=== PATIENT | female | born 1960 | race Caucasian/White ===

== ENCOUNTER → 2016-10-17 | Outpatient (CLI) | payer OTHER ==
--- NOTE | 2016-10-17 16:48 | US ---
EXAMINATION TYPE: US thyroid st tissue head/neck DATE OF EXAM: 10/17/2016 3:57 PM COMPARISON: Prior thyroid ultrasound October 02, 2014. CLINICAL HISTORY: E04.1 THYROID NODULES. follow up exam GLAND SIZE: Right Lobe: 3.9 x 1.2 x 1.5 cm Overall Parenchyma: heterogenous Left Lobe: 3.4 x 0.9 x 1.1 cm Overall Parenchyma: heterogeneous Isthmus Thickness: 0.4 cm NODULES RIGHT: # of nodules measured on right: 0 LEFT: # of nodules measured on left: 0 ISTHMUS: # of nodules measured in the isthmus: 0 Bilateral neck scanned, no evidence of lymphadenopathy. Heterogeneous lobes bilaterally Heterogeneous somewhat small thyroid gland is redemonstrated. No suspicious nodules are identified on today's study. IMPRESSION: Overall stable findings, heterogeneous small thyroid gland without discrete solid or cystic nodules i dentified.
--- NOTE | 2016-10-18 11:28 | MM ---
Reason for exam: screening (asymptomatic). Last mammogram was performed 3 years and 2 months ago. History: Patient is postmenopausal, has history of endometrial cancer at age 51, and had first child at age 34. Family history of breast cancer in sister at age 52 and breast cancer in maternal grandmother at age 80. Took hormonal contraceptives for 5 years 6 months. Physical Findings: A clinical breast exam by your physician is recommended on an annual basis and results should be correlated with mammographic findings. MG 3D Screening Mammo W/Cad Bilateral CC and MLO view(s) were taken. Prior study comparison: August 16, 2013, bilateral digital screening mammo w/CAD. January 25, 2012, [facility] DIGITAL RIGHT MAMMOGRAM w/CAD. The breast tissue is almost entirely fat. There is no discrete abnormality. No significant changes when compared with prior studies. ASSESSMENT: Negative, BI-RAD 1 RECOMMENDATION: Routine screening mammogram of both breasts in 1 year.
== END | disposition home or self-care (01) ==
LOC: RADMAMWWP 15:10
PROVIDERS: ATTEND Family Medicine
DX: Z12.31 Encounter for screening mammogram for malignant neoplasm of breast (principal); E04.1 Nontoxic single thyroid nodule
CPT/HCPCS: 77063; 76536; G0202

== ENCOUNTER → 2017-12-07 | Outpatient (CLI) | payer OTHER ==
--- NOTE | 2017-12-07 13:33 | US ---
EXAMINATION TYPE: US thyroid st tissue head/neck DATE OF EXAM: 12/07/2017 COMPARISON: 10/24/17 CLINICAL HISTORY: E04.1 nodules, R91.1 Lung Nodule. GLAND SIZE: Right Lobe: 3.8 x 1.0 x 1.2 cm Overall Parenchyma: heterogenous Left Lobe: 3.1 x 0.7 x 0.9 cm Overall Parenchyma: heterogeneous Isthmus Thickness: 0.3 cm NODULES RIGHT: # of nodules measured on right: 0 LEFT: # of nodules measured on left: 0 ISTHMUS: # of nodules measured in the isthmus: 0 Bilateral neck scanned, no evidence of lymphadenopathy. Diffusely heterogenous gland bilaterally with no definitive nodule(s) IMPRESSION: Diffuse heterogeneity of the thyroid gland with no discrete nodules. Finding could relate to thyroidi tis. Correlate with laboratory values.
--- NOTE | 2017-12-07 17:30 | CT ---
EXAMINATION TYPE: CT chest w con DATE OF EXAM: 12/07/2017 COMPARISON: 10/14/2015 HISTORY: Follow up Left sided nodule per patient CT DLP: 783.2 mGycm, Automated exposure control for dose reduction was used. CONTRAST: Performed injected with 100 mL of Isovue 300. TECHNIQUE: Axial images were obtained at 5 mm thick sections. Reconstructed images are reviewed on [employer] computer in the coronal plane. FINDINGS: Portion of the thyroid visualized is normal. There is a 0.5 cm nodule posterior lateral periphery right upper lobe. Series 4 image 30. This appear s to been present previously No enlarged mediastinal or hilar adenopathy is evident. The ascending aorta diameter at the level o f the main pulmonary artery is 2.6 cm. The main pulmonary artery diameter at the bifurcation is 2.[address] sections are obtained through the upper abdomen. There is a 2.1 cm cyst within the left lo be liver measuring 9 Hounsfield units. Some mild fatty infiltration of liver may be present. IMPRESSIONS: 1. Small stable subcentimeter nodule periphery right upper lobe. Follow-up exam in one year can confi rm stability.
--- NOTE | 2017-12-11 10:34 | MM ---
Reason for exam: screening (asymptomatic). Last mammogram was performed 1 year and 2 months ago. History: Patient is postmenopausal, has history of endometrial cancer at age 51, and had first child at age 34. Family history of breast cancer in sister at age 52 and breast cancer in maternal grandmother at age 80. Took hormonal contraceptives for 5 years 6 months. Physical Findings: A clinical breast exam by your physician is recommended on an annual basis and results should be correlated with mammographic findings. MG 3D Screening Mammo W/Cad Bilateral CC and MLO view(s) were taken. Prior study comparison: October 17, 2016, bilateral MG 3d screening mammo w/cad. August 16, 2013, bilateral digital screening mammo w/CAD. There are scattered fibroglandular densities. There are benign appearing stable bilateral round oval circumscribed masses likely intramammary lymph nodes. No suspicious abnormality. No significant changes when compared with prior studies. ASSESSMENT: Benign, BI-RAD 2 RECOMMENDATION: Routine screening mammogram of both breasts in 1 year.
== END | disposition home or self-care (01) ==
LOC: RADMAMWWP 10:25
PROVIDERS: ATTEND Family Medicine
DX: Z12.31 Encounter for screening mammogram for malignant neoplasm of breast (principal); R91.1 Solitary pulmonary nodule; E07.89 Other specified disorders of thyroid
CPT/HCPCS: 77067; 77063; 76536; 71260; Q9967

== ENCOUNTER → 2019-06-17 | Outpatient (CLI) | payer OTHER ==
--- NOTE | 2019-06-17 09:42 | US ---
EXAMINATION TYPE: US thyroid st tissue head/neck DATE OF EXAM: 06/17/2019 COMPARISON: US 12/07/2017 CLINICAL HISTORY: R22.0 SWELLING. F/U, pt on Synthroid GLAND SIZE: Right Lobe: 3.9 x 1.3 x 1.7 cm Overall Parenchyma: Diffusely heterogeneous Left Lobe: 3.1 x 0.9 x 1.1 cm Overall Parenchyma: Diffusely heterogeneous Isthmus Thickness: 0.4 cm Bilateral neck scanned, probable lymph node right lateral neck= 0.6 cm, probable lymph node left late ral neck= 0.4 cm. Diffusely heterogeneous thyroid bilaterally, similar finding when compared to previ ous. IMPRESSION: Diffusely heterogenous thyroid gland, which may be sequela of chronic thyroiditis. No discrete nodule . Bilateral nonenlarged adjacent lymph nodes are incidentally seen.
--- NOTE | 2019-06-17 11:28 | MM ---
Reason for exam: screening (asymptomatic). Last mammogram was performed 1 year and 6 months ago. History: Patient is postmenopausal, has history of endometrial cancer at age 51, and had first child at age 34. Family history of breast cancer in sister at age 52 and breast cancer in maternal grandmother at age 80. Took hormonal contraceptives for 5 years 6 months. Physical Findings: A clinical breast exam by your physician is recommended on an annual basis and results should be correlated with mammographic findings. MG 3D Screening Mammo W/Cad Bilateral CC and MLO view(s) were taken. Prior study comparison: December 07, 2017, bilateral MG 3d screening mammo w/cad. October 17, 2016, bilateral MG 3d screening mammo w/cad. There are scattered fibroglandular densities. No suspicious abnormality. Stable intramammary lymph nodes. No significant changes when compared with prior studies. ASSESSMENT: Negative, BI-RAD 1 RECOMMENDATION: Routine screening mammogram of both breasts in 1 year.
--- NOTE | 2019-06-17 12:00 | BD ---
EXAMINATION TYPE: Axial Bone Density DATE OF EXAM: 06/17/2019 COMPARISON: NONE CLINICAL HISTORY: Z 78.0 Height: 65.5 IN Weight: 266 LBS FRAX RISK QUESTIONS: Secondary Osteoporosis: Rheumatoid Arthritis: YES RISK FACTORS HISTORY OF: Hip Fracture (Right): YES AGE 39 Surgery to Spine(right): YES AGE 53 Family History of Osteoporosis: YES MOTHER AND SISTER Active: YES Diet low in dairy products/other sources of calcium: YES Postmenopausal woman: TOTAL HYST AGE 51 MEDICATIONS: Thyroid Medications: YES Which medication: Synthroid How Lon + YEARS Additional Medications: CALCIUM, VIT D, SYNTHROID, WATER PILL, EXAM MEASUREMENTS: Bone mineral densitometry was performed using the [employer] System. Bone mineral density as measured about the Lumbar spine is: ----- L1-L4(G/cm2): 1.321 T Score Values are as follows: ----- L2: 1.6 ----- L3: 1.3 ----- L4: 0.7 ----- L1-L4: 1.2 Bone mineral density BASELINE Bone mineral density about the L hip (g/cm2): 0.974 T Score values are as follows: -----L Neck: -0.5 -----L Total: 0.9 Bone mineral density BASELINE IMPRESSION: Normal (Values between +1 and -1 indicate normal bone mass). Consider repeating this study in 5 year s or sooner if there is some new clinical indication. NOTE: T-SCORE=SD OF THE YOUNG ADULT MEAN.
== END | disposition home or self-care (01) ==
LOC: RADMAMWWP 08:16
PROVIDERS: ATTEND Family Medicine
DX: Z12.31 Encounter for screening mammogram for malignant neoplasm of breast (principal); E07.89 Other specified disorders of thyroid; Z78.0 Asymptomatic menopausal state; Z80.3 Family history of malignant neoplasm of breast
CPT/HCPCS: 76536; 77063; 77067; 77080

== ENCOUNTER → 2021-01-29 | Outpatient (CLI) | payer OTHER ==
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
--- NOTE | 2021-01-31 09:02 | US ---
EXAMINATION TYPE: US thyroid st tissue head/neck DATE OF EXAM: 01/29/2021 COMPARISON: 06/17/2019 CLINICAL HISTORY: E066.9 THYROIDITIS. GLAND SIZE: Right Lobe: 3.8 x 0.7 x 1.3 cm Overall Parenchyma: heterogenous Left Lobe: 2.8 x 0.7 x 0.7 cm Overall Parenchyma: heterogeneous Isthmus Thickness: 0.3 cm NODULES RIGHT: # of nodules measured on right: 0 LEFT: # of nodules measured on left: 0 ISTHMUS: # of nodules measured in the isthmus: 0 Bilateral neck scanned, no evidence of lymphadenopathy. IMPRESSION: Glandular heterogeneity is nonspecific. No distinct nodules appreciated. 2017 ACR TI-RADS LEVEL: *Highest TI-RADS level nodule reported
--- NOTE | 2021-02-04 11:52 | MM ---
Reason for exam: screening (asymptomatic). Last mammogram was performed 1 year and 7 months ago. History: Patient is postmenopausal, has history of endometrial cancer at age 51, and had first child at age 34. Family history of breast cancer in sister at age 52 and breast cancer in maternal grandmother at age 80. Took hormonal contraceptives for 5 years 6 months. Physical Findings: A clinical breast exam by your physician is recommended on an annual basis and results should be correlated with mammographic findings. MG 3D Screening Mammo W/Cad Bilateral CC and MLO view(s) were taken. Prior study comparison: June 17, 2019, bilateral MG 3d screening mammo w/cad. December 07, 2017, bilateral MG 3d screening mammo w/cad. The breast tissue is almost entirely fat. There is no discrete abnormality. No significant changes when compared with prior studies. ASSESSMENT: Negative, BI-RAD 1 RECOMMENDATION: Routine screening mammogram of both breasts in 1 year.
== END | disposition home or self-care (01) ==
LOC: RADMAMWWP 14:56
PROVIDERS: ATTEND Family Medicine
DX: Z12.31 Encounter for screening mammogram for malignant neoplasm of breast (principal); R10.9 Unspecified abdominal pain; E06.9 Thyroiditis, unspecified
CPT/HCPCS: 77067; 77063; 76536; 74177; Q9967

== ENCOUNTER → 2021-11-05 | Outpatient (CLI) | payer OTHER ==
--- NOTE | 2021-11-05 13:06 | XR ---
EXAMINATION TYPE: XR chest 2V DATE OF EXAM: 11/05/2021 COMPARISON: NONE HISTORY: R05.9 TECHNIQUE: Frontal and lateral views of the chest are obtained. FINDINGS: There is no focal air space opacity, pleural effusion, or pneumothorax seen. The cardiac silhouette size is within normal limits. The right hemidiaphragm is mildly elevated. Surgical clips a re present in the upper abdomen. There is bronchial wall thickening. The osseous structures are inta ct. IMPRESSION: Correlate for bronchitis, reactive airways disease, follow-up as indicated.
== END | disposition home or self-care (01) ==
LOC: RADXRMAIN 12:33
PROVIDERS: ATTEND Family Medicine
DX: J40 Bronchitis, not specified as acute or chronic (principal); R05.9 Cough, unspecified
CPT/HCPCS: 71046

== ENCOUNTER 2022-02-25 08:43 | Emergency (ER) | payer OTHER ==
[2022-02-25 08:48] VITALS: TEMP 98.1
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
[2022-02-25 09:30] LABS: Basophils # (A) 0.1 k/uL (0-0.2); Basophils % (A) 1 %; Eosinophils # (A) 0.3 k/uL (0-0.7); Eosinophils % (A) 4 %; HCT 42.8 % (34.0-46.0); HGB 13.7 gm/dL (11.4-16.0); Lymphocytes # (A) 1.8 k/uL (1.0-4.8); Lymphocytes % (A) 27 %; MCH 29.6 pg (25.0-35.0); MCHC 31.9 g/dL (31.0-37.0); MCV 92.6 fL (80.0-100.0); Mean Platelet Volume 9.5; Monocytes # (A) 0.3 k/uL (0-1.0); Monocytes % (A) 4 %; Neutrophils # (A) 4.4 k/uL (1.3-7.7); Neutrophils % (A) 63 %; Platelet Count 246 k/uL (150-450); RBC 4.62 m/uL (3.80-5.40); RDW 12.7 % (11.5-15.5); WBC 6.9 k/uL (3.8-10.6)
--- NOTE | 2022-02-25 09:36 | XR ---
EXAMINATION TYPE: XR chest 1V portable DATE OF EXAM: 02/25/2022 COMPARISON: 11/05/2021 HISTORY: Heart palpitations TECHNIQUE: Single frontal view of the chest is obtained. FINDINGS: There is no focal air space opacity, pleural effusion, or pneumothorax seen. The cardiac silhouette size is within normal limits. The osseous structures are intact. Atherosclerotic changes aorta. Heart size normal. Hyperinflation suggests COPD. Arthropathy of the AC joint. Correlate for u nderlying COPD. IMPRESSION: No acute process.
[2022-02-25 09:44] LABS: Calcium 9.2 mg/dL (8.4-10.2); Magnesium 1.7 mg/dL (1.6-2.3); Potassium 3.9 mmol/L (3.5-5.1)
[2022-02-25 09:51] LABS: INR 0.9 (<1.2); Partial Thromboplastin Time 22.2 sec (22.0-30.0)
[2022-02-25 10:01] LABS: T4, Free (Free Thyroxine) 1.81 ng/dL (0.78-2.19)
[2022-02-25 11:08] VITALS: BP 121/82; PULSE 80; RESP 18
== END 2022-02-25 11:36 | disposition home or self-care (01) ==
LOC: EC 08:43
DX: R00.0 Tachycardia, unspecified (principal); Z79.899 Other long term (current) drug therapy; E07.9 Disorder of thyroid, unspecified; Z88.8 Allergy status to other drugs, medicaments and biological substances; Z88.7 Allergy status to serum and vaccine
CPT/HCPCS: 36415; 71045; 80048; 83605; 83735; 84439; 84443; 84481; 84484; 85025; 85379; 85610; 85730

== ENCOUNTER → 2023-03-15 | Outpatient (CLI) | payer OTHER ==
--- NOTE | 2023-03-15 16:54 | MM ---
Reason for Exam: Screening (asymptomatic). Last mammogram was performed 1 year(s) and 1 month(s) ago. Patient History: Menarche at age 9. First Full-Term at age 34. Late child-bearing (after 30). Left ovary removed at age 51. Right ovary removed at age 51. Hysterectomy at age 51. Postmenopausal. Patient has history of breast feeding. Endometrial cancer, age 51. Hormonal Contraceptives for 5 years, 6 months. Maternal grandmother had breast cancer, age 80. Sister had breast cancer, age 52. Risk Values: Kandice 5 year model risk: 3.5%. NCI Lifetime model risk: 14.3%. Prior Study Comparison: 06/17/2019 Bilateral Screening Mammogram, [facility]. 01/29/2021 Bilateral Screening Mammogram, [facility]. 03/02/2022 Bilateral MG 3D screening mammo w/cad, [facility]. Tissue Density: The breast tissue is almost entirely fat. Findings: Analyzed By CAD. Pattern appears stable. There are multiple small rounded circumscribed nodules may be intramammary lymph nodes present bilaterally which appear stable from comparison. No significant interval changes are evident. No suspicious groups of microcalcifications, spiculated or lobular masses, architectural distortion or other secondary signs of malignancy are mammographically apparent. Overall Assessment: Benign, BI-RAD 2 Management: Screening Mammogram of both breasts in 1 year. A negative mammogram report should not preclude additional follow up of suspicious palpable abnormalities. Patient should continue monthly self breast exam. A clinical breast exam by your physician is recommended on an annual basis and results should be correlated with mammographic findings. Electronically signed and approved by: Leo Fry D.O. Radiologis
== END | disposition home or self-care (01) ==
LOC: RADMAMWWP 06:58
PROVIDERS: ATTEND Family Medicine
DX: Z12.31 Encounter for screening mammogram for malignant neoplasm of breast (principal); Z78.0 Asymptomatic menopausal state; Z80.3 Family history of malignant neoplasm of breast
CPT/HCPCS: 77063; 77067

== ENCOUNTER → 2024-07-05 | Outpatient (CLI) | payer OTHER ==
--- NOTE | 2024-07-05 12:51 | BD ---
EXAMINATION TYPE: Axial Bone Density DATE OF EXAM: 07/05/2024 CLINICAL HISTORY: 63 years old Female. ICD-10 CODE: Z78.0 POST MENOPAUSAL , Additional History: Height: 5 ft 5 in Weight: 197 FRAX RISK QUESTIONS: Alcohol (3 or more units per day): no Family History (Parent hip fracture): no Glucocorticoids (More than 3mos): no (Ex: prednisone, prednisolone, methylprednisolone, dexamethasone, and hydrocortisone). History of Fracture in Adulthood: yes Secondary Osteoporosis: 1. Type 1 Diabetes: no 2. Hyperthyroidism: no 3. Menopause before 45: no 4. Malnutrition: no 5. Chronic liver disease: no Rheumatoid Arthritis: yes Current Tobacco Use: no RISK FACTORS HISTORY OF: Hip Fracture (Right/Left): rt When: 24 years Surgery to Spine/Hip(right/left)/Wrist (right/left): rt hip replacement When: 12 years ago MEDICATIONS: Thyroid Medications: yes Which medication: synthroid How Lon years Osteoporosis Medications: none EXAM MEASUREMENTS: Bone mineral densitometry was performed using the [employer]. Bone mineral density as measured about the Lumbar spine is: ----- L1-L4(G/cm2): 1.377 T Score Values are as follows: ----- L1: 0.9 ----- L2: 1.5 ----- L3: 2.3 ----- L4: 1.5 ----- L1-L4: 1.6 Z Score Values are as follows: ----- L1: 1.6 ----- L2: 2.2 ----- L3: 3.0 ----- L4: 2.3 ----- L1-L4: 2.4 Bone mineral density has: increased 4.2 % since study of: 2019 Bone mineral density about the L hip (g/cm2): 0.900 T Score values are as follows: -----L Neck: -1.0 -----L Total: 0.1 Z Score values are as follows: -----L Neck: -0.1 -----L Total: 0.7 Bone mineral density has: decreased -9.1 % since study of: 2019 FRAX%s: The graph provided illustrates a 16.0 % chance for a major osteoporotic fx and a 1.2 % chance for the hips probability for fx in 10 years time. IMPRESSION: Normal (Values between +1 and -1 indicate normal bone mass). Note that measurements are bordering on osteopenia at the left hip. Consider repeating this study in 5 years or sooner if there is some new clinical indication. NOTE: T-SCORE=SD OF THE YOUNG ADULT MEAN. [facility], , 07/05/2024 12:48 PM
== END | disposition home or self-care (01) ==
LOC: RADBDWWP 09:17
PROVIDERS: ATTEND Family Medicine
DX: M85.852 Other specified disorders of bone density and structure, left thigh (principal); Z78.0 Asymptomatic menopausal state
CPT/HCPCS: 77080